=== PATIENT | male | born 1985 | race American Indian/Alaskan Native ===

== ENCOUNTER 2019-01-02 10:26 | Emergency (ER) | payer SELFPAY ==
[2019-01-02 10:39] VITALS: BP 140/96
[2019-01-02 11:27] LABS: Basophils # (Auto) 0.1 K/mm3 (0.0-0.1); Basophils % (Auto) 1.2 % (0.0-1.8); Eosinophils # (Auto) 0.1 K/mm3 (0.0-0.4); Eosinophils % (Auto) 0.8 % (0.0-4.3); Lymphocytes # (Auto) 1.5 K/mm3 (1.2-5.4); Lymphocytes % (Auto) 14.4 % (13.4-35.0); Mean Corpuscular HGB Conc 35 % (32-34); Mean Corpuscular Volume 93 fl (84-94); Monocytes # (Auto) 0.8 K/mm3 (0.0-0.8); Monocytes % (Auto) 8.4 % (0.0-7.3); Platelet Count 224 K/mm3 (140-440); Red Blood Count 4.96 M/mm3 (3.65-5.03); Red Cell Distribution Width 13.7 % (13.2-15.2)
[2019-01-02 11:37] LABS: INR 1.05 (0.87-1.13); Partial Thromboplastin Time 26.5 Sec. (24.2-36.6)
[2019-01-02 11:52] LABS: BUN/Creatinine Ratio 11; Blood Urea Nitrogen 10 mg/dL (9-20); Calcium 9.6 mg/dL (8.4-10.2); Hemolysis Index 3
--- NOTE | 2019-01-02 11:54 | Emergency Department Report ---
ED General Adult HPI - General Chief complaint: Chest Pain Stated complaint: CHEST DISCOMFORT Time Seen by Provider: 01/02/19 10:43 Source: patient Mode of arrival: Ambulatory Limitations: No Limitations - History of Present Illness Initial comments: This is a 33-year-old male nontoxic, well nourished in appearance, no acute signs of distress presents to the ED with c/o of body aches, nausea, and chest tightness. Patient currently stated that chest tightness has resolved. Patient stated that he went out last night around 11 PM and had a drink and believed a history of a spike. Patient stated this and then has having the symptoms as well as some drowsiness. Patient denies any chest pain. Patient denies any upper respiratory symptoms. Patient denies any shortness of breath, hemoptysis, fever, chills, nausea, vomiting, headache, stiff neck, numbness, tingling, abdominal pain. Patient denies pleuritic chest pain. Patient denies any recent travels or long car rides. Patient denies any recent surgeries or any sick contacts. Patient denies any drug allergies. Patient denies significant past medical history. -: Last night Radiation: non-radiation Severity scale (0 -10): 0 Consistency: now resolved Improves with: none Worsens with: none Associated Symptoms: nausea/vomiting, weakness. denies: confusion, chest pain, cough, diaphoresis, fever/chills, headaches, loss of appetite, malaise, rash, seizure, shortness of breath, syncope - Related Data Previous Rx's Medication Instructions Recorded Last Taken Type Ondansetron [Zofran Odt] 4 mg PO Q8HR PRN #20 tab.rapdis 01/02/19 Unknown Rx Allergies Allergy/AdvReac Type Severity Reaction Status Date / Time No Known Allergies Allergy Verified 01/02/19 10:27 ED Review of Systems ROS: Stated complaint: CHEST DISCOMFORT Other details as noted in HPI Constitutional: denies: chills, fever Eyes: denies: eye pain, eye discharge, vision change ENT: denies: ear pain, throat pain Respiratory: denies: cough, shortness of breath, wheezing Cardiovascular: denies: chest pain, palpitations Endocrine: no symptoms reported Gastrointestinal: denies: abdominal pain, nausea, diarrhea Genitourinary: denies: urgency, dysuria Musculoskeletal: denies: back pain, joint swelling, arthralgia Skin: denies: rash, lesions Neurological: weakness. denies: headache, paresthesias Psychiatric: denies: anxiety, depression Hematological/Lymphatic: denies: easy bleeding, easy bruising ED Past Medical Hx - Past Medical History Previous Medical History?: No - Surgical History Hx Appendectomy: Yes Additional Surgical History: Plate to right ankle - Social History Smoking Status: Current Every Day Smoker Substance Use Type: Alcohol, Marijuana - Medications Home Medications: Home Medications Medication Instructions Recorded Confirmed Last Taken Type Ondansetron [Zofran Odt] 4 mg PO Q8HR PRN #20 tab.rapdis 01/02/19 Unknown Rx ED Physical Exam - General Limitations: No Limitations General appearance: alert, in no apparent distress - Head Head exam: Present: atraumatic, normocephalic - Eye Eye exam: Present: normal appearance - Neck Neck exam: Present: normal inspection, full ROM. Absent: tenderness, meningismus, lymphadenopathy - Respiratory Respiratory exam: Present: normal lung sounds bilaterally. Absent: respiratory distress, wheezes, rales, rhonchi, stridor, chest wall tenderness, accessory muscle use, decreased breath sounds, prolonged expiratory - Cardiovascular Cardiovascular Exam: Present: regular rate, normal rhythm, normal heart sounds. Absent: irregular rhythm, systolic murmur, diastolic murmur, rubs, gallop - GI/Abdominal GI/Abdominal exam: Present: soft, normal bowel sounds. Absent: distended, tenderness, guarding, rebound, rigid, diminished bowel sounds - Rectal Rectal exam: Present: deferred - Extremities Exam Extremities exam: Present: normal inspection, full ROM, normal capillary refill. Absent: tenderness - Back Exam Back exam: Present: normal inspection, full ROM. Absent: tenderness, CVA tenderness (R), CVA tenderness (L), muscle spasm, paraspinal tenderness, vertebral tenderness, rash noted - Neurological Exam Neurological exam: Present: alert, oriented X3, normal gait - Psychiatric Psychiatric exam: Present: normal affect, normal mood - Skin Skin exam: Present: warm, dry, intact, normal color. Absent: rash ED Course Vital Signs 01/02/19 10:32 Temperature 98.2 F Pulse Rate 100 H Respiratory 18 Rate Blood Pressure 140/96 O2 Sat by Pulse 100 Oximetry - Reevaluation(s) Reevaluation #1: 01/02/19 11:53 Patient is speaking in full sentences with no signs of distress noted. ED Medical Decision Making - Lab Data Result diagrams: 01/02/19 11:04 01/02/19 11:04 - Medical Decision Making This is a 33-year-old male that presents with generalized weakness. Patient is stable and was examined by me. MELISSA and HEART score 0 pints. Wells criteria for DVT/SVT/PE 0 points. EKG normal sinus rhythm with no significant changes in ST. Chest xray dictated by the radiologist. PAtient is notified of the Xray report with no questions noted. Labs within normal limits. Negative troponin. UA and drug panel obtained. 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 At time of discharge, the patient does not seem toxic or ill in appearance. No acute signs of distress noted. Patient agrees to discharge treatment plan of care. No further questions noted by the patient. Critical care attestation.: If time is entered above; I have spent that time in minutes in the direct care of this critically ill patient, excluding procedure time. ED Disposition Clinical Impression: Generalized weakness Disposition: DC-01 TO HOME OR SELFCARE Is pt being admited?: No Does the pt Need Aspirin: No Condition: Stable Instructions: Weakness (ED) Additional Instructions: Follow-up with a primary care doctor in 3-5 days or if symptoms worsen and continue return to emergency room as soon as possible. Prescriptions: Ondansetron [Zofran Odt] 4 mg PO Q8HR PRN #20 tab.rapdis PRN Reason: nausea [facility] OLIV[facility] [Primary Care Provider[facility] - 3-5 Days PRIMARY MD SD [Referring] - 3-5 Days JANNET HYMAN MD [Staff Physician] - 3-5 Days [facility] [Outside] - 3-5 Days [facility] [Outside] - 3-5 Days Forms: Work/School Release Form(ED)
[2019-01-02 12:09] LABS: Bilirubin,Urine NEG (Negative); Blood,Urine NEG (Negative); Color,Urine Straw (Yellow); Protein,Urine <15 mg/dL mg/dL (Negative); Urobilinogen,Urine < 2.0 mg/dL (<2.0)
--- NOTE | 2019-01-02 12:15 | XRay Report ---
PROCEDURE: XR CHEST ROUTINE 2V TECHNIQUE: Chest, 2 views HISTORY: Chest Pain COMPARISON: None FINDINGS: The heart size is normal. There is no pulmonary vascular congestion seen. Mediastinal contours are normal. Lungs are clear. There is no pleural effusion seen. There is no pneumothorax seen. IMPRESSION: No acute abnormality identified. This document is electronically signed by Luh Almanza MD., January 02 2019 01:13:43 PM ET
[2019-01-02 12:19] LABS: Amphetamine Screen,Urine PRESUMPTIVE NEGATIVE; Benzodiazepines Screen,Urine PRESUMPTIVE NEGATIVE; Cocaine Screen,Urine PRESUMPTIVE NEGATIVE; Methadone Screen,Urine PRESUMPTIVE NEGATIVE; Opiate Screen,Urine PRESUMPTIVE NEGATIVE
[2019-01-02 12:33] LABS: Cannabinoid Screen,Urine PRESUMPTIVE POSITIVE
== END 2019-01-02 12:30 | disposition home or self-care (01) ==
LOC: ED 10:26
DX: R53.1 Weakness (principal); R07.89 Other chest pain; F17.200 Nicotine dependence, unspecified, uncomplicated; F12.10 Cannabis abuse, uncomplicated; Z90.49 Acquired absence of other specified parts of digestive tract
CPT/HCPCS: 36415; 71046; 80048; 80307; 81001; 84484; 85025; 85610; 85730; 93005; 93010

== ENCOUNTER 2019-08-06 05:12 | Emergency (ER) | payer SELFPAY ==
[2019-08-06] MEDS ORDERED: SODIUM CHLORIDE 0.9% 1000 ML 1,000 ML ONE (05:50)
[2019-08-06] MEDS ORDERED: ADENOSINE 6 MG/2 ML INJ ONE (05:54)
[2019-08-06] MEDS ORDERED: LORazepam 2 MG/ML VIAL ONE (06:06)
[2019-08-06] MEDS ORDERED: SODIUM CHLORIDE 0.9% 1000 ML 1,000 ML IV ONE (06:30)
[2019-08-06] MEDS ORDERED: LORazepam 2 MG/ML VIAL IV ONE (06:30)
--- NOTE | 2019-08-06 07:02 | XRay Report ---
CHEST 1 VIEW, 08/06/2019 6:39 AM CLINICAL INFORMATION/INDICATION: Chest pain COMPARISON: Chest radiograph, 01/02/2019 FINDINGS: SUPPORT DEVICES: None. HEART: The cardiac silhouette is normal in size. LUNGS/PLEURA: The lungs are well expanded and appear clear of focal airspace disease or significant p leural effusion. ADDITIONAL FINDINGS: No additional acute findings. IMPRESSION: 1. No evidence of acute cardiopulmonary process. Signer Name: Lynne Razo MD Signed: 08/06/2019 6:57 AM Workstation Name: [id number]
[2019-08-06 07:23] LABS: Basophils % (Auto) 0.4 % (0.0-1.8); Eosinophils % (Auto) 0.5 % (0.0-4.3); Hemoglobin 13.8 gm/dl (11.8-15.2); Lymphocytes # (Auto) 1.8 K/mm3 (1.2-5.4); Lymphocytes % (Auto) 21.4 % (13.4-35.0); Mean Corpuscular HGB Conc 33 % (32-34); Mean Corpuscular Volume 94 fl (84-94); Monocytes # (Auto) 0.6 K/mm3 (0.0-0.8); Monocytes % (Auto) 6.6 % (0.0-7.3); Platelet Count 180 K/mm3 (140-440); Red Blood Count 4.46 M/mm3 (3.65-5.03); Red Cell Distribution Width 13.7 % (13.2-15.2)
[2019-08-06 07:31] LABS: INR 1.02 (0.87-1.13)
[2019-08-06 07:32] LABS: Partial Thromboplastin Time 29.5 Sec. (24.2-36.6)
--- NOTE | 2019-08-06 07:32 | Emergency Department Report ---
ED General Adult HPI - General Chief complaint: Arrhythmia/Palpitations Stated complaint: HEART RATE, CHEST PAIN Time Seen by Provider: 08/06/19 06:30 Source: patient, family Mode of arrival: Ambulatory Limitations: No Limitations - History of Present Illness Initial comments: 34-year-old male who felt the onset of his heart beating rapidly at about 5 AM this morning. He had some vague dyspnea which was mild in intensity. He thought he might be experiencing a panic attack. He did not have cough. He denied chest pain pressure or tightness. Apparently he was given a Zofran by a mid-level provider earlier. He did not complain to me of nausea. Denied fever or chills. H and states he's had episodes like this before but not as persistent. He tells me he is on trazodone and Seroquel. 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 Other than that he denies any ongoing medical problems. He's had no appendectomy no recent surgery. Patient denies previous history of serious infection or venous thromboembolism. He's had no recent travel. He denies any ongoing substance abuse. -: Gradual Associated Symptoms: denies other symptoms - Related Data Previous Rx's Medication Instructions Recorded Last Taken Type Ondansetron [Zofran Odt] 4 mg PO Q8HR PRN #20 tab.rapdis 01/02/19 Unknown Rx Allergies Allergy/AdvReac Type Severity Reaction Status Date / Time No Known Allergies Allergy Verified 01/02/19 10:27 ED Review of Systems ROS: Stated complaint: HEART RATE, CHEST PAIN Other details as noted in HPI Constitutional: denies: chills, fever Eyes: denies: eye pain, eye discharge, vision change ENT: denies: ear pain, throat pain Respiratory: shortness of breath. denies: cough, wheezing Cardiovascular: other. denies: chest pain, palpitations Endocrine: no symptoms reported Gastrointestinal: denies: abdominal pain, nausea, diarrhea Genitourinary: denies: urgency, dysuria Musculoskeletal: denies: back pain, joint swelling, arthralgia Skin: denies: rash, lesions Neurological: denies: headache, weakness, paresthesias Psychiatric: anxiety. denies: depression Hematological/Lymphatic: denies: easy bleeding, easy bruising ED Past Medical Hx - Past Medical History Previous Medical History?: No Hx Psychiatric Treatment: Yes Additional medical history: "Drug induced schizophrenia" - Surgical History Past Surgical History?: Yes Hx Appendectomy: Yes Additional Surgical History: Plate to right ankle - Social History Smoking Status: Current Every Day Smoker Substance Use Type: Alcohol, Marijuana - Medications Home Medications: Home Medications Medication Instructions Recorded Confirmed Last Taken Type Ondansetron [Zofran Odt] 4 mg PO Q8HR PRN #20 tab.rapdis 01/02/19 Unknown Rx ED Physical Exam - General Limitations: No Limitations General appearance: alert, in no apparent distress - Head Head exam: Present: atraumatic, normocephalic - Eye Eye exam: Present: normal appearance, PERRL, EOMI. Absent: scleral icterus - ENT ENT exam: Present: mucous membranes moist - Neck Neck exam: Present: normal inspection. Absent: tenderness, meningismus - Respiratory Respiratory exam: Present: normal lung sounds bilaterally. Absent: respiratory distress - Cardiovascular Cardiovascular Exam: Present: normal rhythm, tachycardia. Absent: systolic murmur, diastolic murmur, rubs, gallop - GI/Abdominal GI/Abdominal exam: Present: soft, normal bowel sounds. Absent: distended, tenderness, guarding, rebound, rigid - Rectal Rectal exam: Present: deferred - Extremities Exam Extremities exam: Present: normal inspection, full ROM, normal capillary refill. Absent: tenderness, pedal edema, joint swelling, calf tenderness - Back Exam Back exam: Present: normal inspection - Neurological Exam Neurological exam: Present: alert, oriented X3, CN II-XII intact. Absent: motor sensory deficit - Psychiatric Psychiatric exam: Present: normal affect, normal mood - Skin Skin exam: Present: warm, dry, intact, normal color. Absent: rash ED Course Vital Signs 08/06/19 08/06/19 08/06/19 05:40 05:43 05:48 Temperature 98.4 F Pulse Rate 187 H 165 H Respiratory 18 18 14 Rate Blood Pressure 117/55 Blood Pressure [Left] O2 Sat by Pulse 97 97 Oximetry 08/06/19 08/06/19 08/06/19 06:00 06:15 07:54 Temperature Pulse Rate 145 H 120 H 105 H Respiratory 11 L 15 16 Rate Blood Pressure 140/76 120/67 Blood Pressure 122/82 [Left] O2 Sat by Pulse 95 96 96 Oximetry 08/06/19 09:58 Temperature Pulse Rate 87 Respiratory 16 Rate Blood Pressure Blood Pressure 96/61 [Left] O2 Sat by Pulse 97 Oximetry - Reevaluation(s) Reevaluation #1: Patient's heart rate was really quite variable upon my encounter. He ranged between 149 and 130; the rhythm is clearly sinus tachycardia. He was given a milligram of Ativan and fluids. Last recorded rate was 120. Labs are pending. 08/06/19 07:40 Reevaluation #2: After the Ativan the patient rested comfortably. He is given fluids. Eventually his heart rate returned to the normal range. I just repeated his blood pressure it was normal and his heart rate was in the 80s. He had no further complaint. He states that he does smoke marijuana but has not smoked any recently. He is appropriate for outpatient disposition. 08/06/19 10:09 ED Medical Decision Making - Lab Data Result diagrams: 08/06/19 06:55 08/06/19 06:55 Laboratory Results - last 24 hr 08/06/19 08/06/19 06:55 06:55 WBC 8.6 RBC 4.46 Hgb 13.8 Hct 42.0 MCV 94 MCH 31 MCHC 33 RDW 13.7 Plt Count 180 Lymph % (Auto) 21.4 [place] % (Auto) 6.6 Eos % (Auto) 0.5 Baso % (Auto) 0.4 Lymph # 1.8 [place] # 0.6 Eos # 0.0 Baso # 0.0 Seg Neutrophils % 71.1 H Seg Neutrophils # 6.1 PT 13.5 INR 1.02 APTT 29.5 D-Dimer 139.46 Laboratory Results - last 24 hr 08/06/19 08/06/19 08/06/19 06:55 06:55 06:55 WBC 8.6 RBC 4.46 Hgb 13.8 Hct 42.0 MCV 94 MCH 31 MCHC 33 RDW 13.7 Plt Count 180 Lymph % (Auto) 21.4 [place] % (Auto) 6.6 Eos % (Auto) 0.5 Baso % (Auto) 0.4 Lymph # 1.8 [place] # 0.6 Eos # 0.0 Baso # 0.0 Seg Neutrophils % 71.1 H Seg Neutrophils # 6.1 PT 13.5 INR 1.02 APTT 29.5 D-Dimer 139.46 Sodium 143 Potassium 3.6 Chloride 109.0 H Carbon Dioxide 21 L Anion Gap 17 BUN 12 Creatinine 0.8 Estimated GFR > 60 BUN/Creatinine Ratio 15 Glucose 96 Lactic Acid Calcium 8.8 Magnesium 2.20 Total Bilirubin Direct Bilirubin Indirect Bilirubin AST ALT Alkaline Phosphatase Total Creatine Kinase 129 CK-MB (CK-2) 1.1 CK-MB (CK-2) Rel Index 0.8 Troponin T < 0.010 Total Protein Albumin Albumin/Globulin Ratio TSH Free T4 Urine Color Urine Turbidity Urine pH Ur Specific [place] Urine Protein Urine Glucose (UA) Urine Ketones Urine Blood Urine Nitrite Urine Bilirubin Urine Urobilinogen Ur Leukocyte Esterase Urine WBC (Auto) Urine RBC (Auto) Urine Opiates Screen Urine Methadone Screen Ur Barbiturates Screen Ur Phencyclidine Scrn Ur Amphetamines Screen U Benzodiazepines Scrn Urine Cocaine Screen U Marijuana (THC) Screen Drugs of Abuse Note 08/06/19 08/06/19 08/06/19 06:55 06:55 07:01 WBC RBC Hgb Hct MCV MCH MCHC RDW Plt Count Lymph % (Auto) [place] % (Auto) Eos % (Auto) Baso % (Auto) Lymph # [place] # Eos # Baso # Seg Neutrophils % Seg Neutrophils # PT INR APTT D-Dimer Sodium Potassium Chloride Carbon Dioxide Anion Gap BUN Creatinine Estimated GFR BUN/Creatinine Ratio Glucose Lactic Acid 1.10 Calcium Magnesium Total Bilirubin 0.20 Direct Bilirubin < 0.2 Indirect Bilirubin 0.0 AST 14 ALT 7 Alkaline Phosphatase 35 Total Creatine Kinase CK-MB (CK-2) CK-MB (CK-2) Rel Index Troponin T Total Protein 6.1 L Albumin 4.0 Albumin/Globulin Ratio 1.9 TSH 2.870 Free T4 0.82 Urine Color Urine Turbidity Urine pH Ur Specific [place] Urine Protein Urine Glucose (UA) Urine Ketones Urine Blood Urine Nitrite Urine Bilirubin Urine Urobilinogen Ur Leukocyte Esterase Urine WBC (Auto) Urine RBC (Auto) Urine Opiates Screen Urine Methadone Screen Ur Barbiturates Screen Ur Phencyclidine Scrn Ur Amphetamines Screen U Benzodiazepines Scrn Urine Cocaine Screen U Marijuana (THC) Screen Drugs of Abuse Note 08/06/19 08/06/19 07:53 07:53 WBC RBC Hgb Hct MCV MCH MCHC RDW Plt Count Lymph % (Auto) [place] % (Auto) Eos % (Auto) Baso % (Auto) Lymph # [place] # Eos # Baso # Seg Neutrophils % Seg Neutrophils # PT INR APTT D-Dimer Sodium Potassium Chloride Carbon Dioxide Anion Gap BUN Creatinine Estimated GFR BUN/Creatinine Ratio Glucose Lactic Acid Calcium Magnesium Total Bilirubin Direct Bilirubin Indirect Bilirubin AST ALT Alkaline Phosphatase Total Creatine Kinase CK-MB (CK-2) CK-MB (CK-2) Rel Index Troponin T Total Protein Albumin Albumin/Globulin Ratio TSH Free T4 Urine Color Straw Urine Turbidity Clear Urine pH 6.0 Ur Specific [place] 1.005 Urine Protein <15 mg/dl Urine Glucose (UA) Neg Urine Ketones Neg Urine Blood Neg Urine Nitrite Neg Urine Bilirubin Neg Urine Urobilinogen < 2.0 Ur Leukocyte Esterase Neg Urine WBC (Auto) < 1.0 Urine RBC (Auto) 1.0 Urine Opiates Screen Presumptive negative Urine Methadone Screen Presumptive negative Ur Barbiturates Screen Presumptive negative Ur Phencyclidine Scrn Presumptive negative Ur Amphetamines Screen Presumptive negative U Benzodiazepines Scrn Presumptive negative Urine Cocaine Screen Presumptive negative U Marijuana (THC) Screen Presumptive positive Drugs of Abuse Note Disclamer - EKG Data -: EKG Interpreted by Tn EKG shows normal: sinus rhythm Rate: tachycardia (160) - EKG Data Interpretation: nonspecific ST-T wave ren (slight ST depression and prominent T waves), other (RSR in V2) Critical care attestation.: If time is entered above; I have spent that time in minutes in the direct care of this critically ill patient, excluding procedure time. ED Disposition Clinical Impression: Tachycardia, Acute anxiety Disposition: DC-01 TO HOME OR SELFCARE Is pt being admited?: No Does the pt Need Aspirin: No Condition: Stable Instructions: Anxiety (ED), Atrial Tachycardia (ED) Additional Instructions: Return as needed any further symptoms. Rest, drink plenty of fluids. Follow-up with her usual care providers or [facility] as needed. Referrals: [facility] [Provider Group] - 3-5 Days Time of Disposition: 10:11
[2019-08-06 07:46] LABS: Creatine Kinase MB 1.1 ng/mL (0.0-4.0)
[2019-08-06 07:49] LABS: BUN/Creatinine Ratio 15; Blood Urea Nitrogen 12 mg/dL (9-20); Calcium 8.8 mg/dL (8.4-10.2); Hemolysis Index 7
[2019-08-06 07:50] LABS: Alanine Aminotransferase 7 units/L (7-56)
[2019-08-06 07:56] LABS: Free T4 (Free Thyroxine) 0.82 ng/dL (0.76-1.46)
[2019-08-06 08:02] LABS: Bilirubin,Direct < 0.2 mg/dL (0-0.2)
[2019-08-06 08:15] LABS: Bilirubin,Urine NEG (Negative); Blood,Urine NEG (Negative); Color,Urine Straw (Yellow); Protein,Urine <15 mg/dL mg/dL (Negative); Urobilinogen,Urine < 2.0 mg/dL (<2.0); WBC,Urine < 1.0 /HPF (0.0-6.0)
[2019-08-06 08:27] LABS: Amphetamine Screen,Urine PRESUMPTIVE NEGATIVE; Benzodiazepines Screen,Urine PRESUMPTIVE NEGATIVE; Cocaine Screen,Urine PRESUMPTIVE NEGATIVE; Methadone Screen,Urine PRESUMPTIVE NEGATIVE; Opiate Screen,Urine PRESUMPTIVE NEGATIVE
[2019-08-06 08:39] LABS: Cannabinoid Screen,Urine PRESUMPTIVE POSITIVE
[2019-08-06 09:59] VITALS: BP 96/61
== END 2019-08-06 10:37 | disposition home or self-care (01) ==
LOC: ED 05:12
DX: R00.0 Tachycardia, unspecified (principal); F41.9 Anxiety disorder, unspecified; F20.9 Schizophrenia, unspecified; F17.200 Nicotine dependence, unspecified, uncomplicated; F10.10 Alcohol abuse, uncomplicated; F12.10 Cannabis abuse, uncomplicated; Z90.49 Acquired absence of other specified parts of digestive tract; Z79.899 Other long term (current) drug therapy
CPT/HCPCS: 36415; 71045; 80048; 80076; 80307; 81001; 82140; 82550; 82553; 83735; 84439; 84443; 84484; 85025; 85379; 85610; 85730; 93005; 93010; 96374; 99284; J0153; J2060; J7030

== ENCOUNTER 2019-09-20 04:10 | Emergency (ER) | payer SELFPAY ==
[2019-09-20] MEDS ORDERED: ASPIRIN 325 MG TAB PO ONE (04:17)
[2019-09-20] MEDS ORDERED: SODIUM CHLORIDE 0.9% 1000 ML 1,000 ML ONE ×2 (04:26→04:28)
[2019-09-20] MEDS ORDERED: LORazepam 2 MG/ML VIAL ONE (04:36)
--- NOTE | 2019-09-20 04:41 | Emergency Department Report ---
ED Palpitations HPI - General Chief Complaint: Chest Pain Stated Complaint: CHEST PAIN DRUG USE Time Seen by Provider: 09/20/19 04:39 Source: patient Mode of arrival: Ambulatory Limitations: No Limitations - History of Present Illness Initial Comments: 34-year-old male presents to ED with complaint of heart palpitations. Patient states he did some cocaine tonight and states his heart was racing faster than usual. Patient reports he has used cocaine previously. Triage note reports patient is having chest pain, however patient currently denies. MD Complaint: "heart racing" -: This morning Context: recent drug use Associated Symptoms: denies: chest pain, shortness of breath, nausea/vomiting - Related Data Previous Rx's Medication Instructions Recorded Last Taken Type Ondansetron [Zofran Odt] 4 mg PO Q8HR PRN #20 tab.rapdis 01/02/19 Unknown Rx Allergies Allergy/AdvReac Type Severity Reaction Status Date / Time No Known Allergies Allergy Verified 01/02/19 10:27 ED Review of Systems ROS: Stated complaint: CHEST PAIN DRUG USE Other details as noted in HPI Comment: All other systems reviewed and negative Constitutional: denies: chills, fever Respiratory: denies: shortness of breath Cardiovascular: palpitations. denies: chest pain ED Past Medical Hx - Past Medical History Previous Medical History?: No Hx Psychiatric Treatment: Yes Additional medical history: "Drug induced schizophrenia" - Surgical History Hx Appendectomy: Yes Additional Surgical History: Plate to right ankle - Social History Smoking Status: Never Smoker Substance Use Type: Cocaine - Medications Home Medications: Home Medications Medication Instructions Recorded Confirmed Last Taken Type Ondansetron [Zofran Odt] 4 mg PO Q8HR PRN #20 tab.rapdis 01/02/19 Unknown Rx ED Physical Exam - General Limitations: No Limitations General appearance: alert, in no apparent distress - Head Head exam: Present: atraumatic, normocephalic - Eye Eye exam: Present: normal appearance, EOMI - ENT ENT exam: Present: mucous membranes moist - Neck Neck exam: Present: normal inspection - Respiratory Respiratory exam: Present: normal lung sounds bilaterally. Absent: respiratory distress - Cardiovascular Cardiovascular Exam: Present: normal rhythm, tachycardia - GI/Abdominal GI/Abdominal exam: Present: soft. Absent: distended, tenderness - Extremities Exam Extremities exam: Present: normal inspection - Neurological Exam Neurological exam: Present: alert, oriented X3 - Psychiatric Psychiatric exam: Present: normal affect, normal mood - Skin Skin exam: Present: warm, dry, intact, normal color ED Course Vital Signs 09/20/19 09/20/19 09/20/19 04:14 04:30 04:46 Temperature 97.8 F Pulse Rate 167 H 131 H 103 H Respiratory 18 11 L 11 L Rate Blood Pressure 131/98 113/68 113/68 O2 Sat by Pulse 98 94 98 Oximetry 09/20/19 09/20/19 09/20/19 04:49 05:16 05:30 Temperature Pulse Rate 114 H 113 H Respiratory 13 13 12 Rate Blood Pressure 113/73 97/52 O2 Sat by Pulse 98 96 94 Oximetry ED Medical Decision Making - Lab Data Result diagrams: 09/20/19 04:22 09/20/19 04:22 - EKG Data -: EKG Interpreted by Ct EKG shows normal: sinus rhythm, axis, intervals, QRS complexes, ST-T waves Rate: tachycardia - EKG Data Interpretation: no acute changes - Radiology Data Radiology results: report reviewed, image reviewed - Medical Decision Making - palpitations after cocaine use - sinus tachycardia - HR initially in the 150s, currently in the 110s. - pt feeling much better - advised to avoid using cocaine - outpt f/u advised, return precautions given Critical care attestation.: If time is entered above; I have spent that time in minutes in the direct care of this critically ill patient, excluding procedure time. ED Disposition Clinical Impression: Palpitations, Cocaine abuse, Hypokalemia Disposition: - TO HOME OR SELFCARE Is pt being admited?: No Condition: Stable Instructions: Palpitations (ED), Cocaine Abuse (ED), Hypokalemia (ED) Referrals: [facility] [Provider Group] - 3-5 Days Time of Disposition: 05:47
[2019-09-20 04:43] LABS: Basophils # (Auto) 0.1 K/mm3 (0.0-0.1); Basophils % (Auto) 0.7 % (0.0-1.8); Eosinophils # (Auto) 0.1 K/mm3 (0.0-0.4); Eosinophils % (Auto) 1.3 % (0.0-4.3); Hematocrit 46.1 % (35.5-45.6); Lymphocytes # (Auto) 2.9 K/mm3 (1.2-5.4); Lymphocytes % (Auto) 26.3 % (13.4-35.0); Mean Corpuscular HGB Conc 35 % (32-34); Mean Corpuscular Volume 92 fl (84-94); Monocytes # (Auto) 0.8 K/mm3 (0.0-0.8); Monocytes % (Auto) 7.4 % (0.0-7.3); Platelet Count 198 K/mm3 (140-440); Red Blood Count 5.04 M/mm3 (3.65-5.03); Red Cell Distribution Width 13.5 % (13.2-15.2)
--- NOTE | 2019-09-20 04:46 | XRay Report ---
CHEST 1 VIEW INDICATION / CLINICAL INFORMATION: Chest Pain. COMPARISON: 08/06/2019 FINDINGS: SUPPORT DEVICES: None. HEART / MEDIASTINUM: No significant abnormality. LUNGS / PLEURA: No significant pulmonary or pleural abnormality.. No pneumothorax. ADDITIONAL FINDINGS: No significant additional findings. IMPRESSION: 1. No acute findings. Signer Name: Amrik Real MD Signed: 09/20/2019 4:41 AM Workstation Name: [id number]
[2019-09-20] MEDS ORDERED: LORazepam 2 MG/ML VIAL IV ONE (04:51)
[2019-09-20 05:07] LABS: BUN/Creatinine Ratio 8; Blood Urea Nitrogen 7 mg/dL (9-20); Calcium 9.7 mg/dL (8.4-10.2); Hemolysis Index 10
[2019-09-20] MEDS ORDERED: POTASSIUM CHLORIDE ER 20 MEQ TAB PO ONE (05:34)
[2019-09-20 06:09] VITALS: BP 102/60
== END 2019-09-20 06:10 | disposition home or self-care (01) ==
LOC: ED 04:10
DX: R00.2 Palpitations (principal); E87.6 Hypokalemia; F14.10 Cocaine abuse, uncomplicated; F20.89 Other schizophrenia; Z98.890 Other specified postprocedural states; Z90.49 Acquired absence of other specified parts of digestive tract; Z79.899 Other long term (current) drug therapy
CPT/HCPCS: 36415; 71045; 80048; 84484; 85025; 93005; 93010; 99284; J2060; J7030

== ENCOUNTER 2019-09-25 06:01 | Emergency (ER) | payer SELFPAY ==
[2019-09-25] MEDS ORDERED: SODIUM CHLORIDE 0.9% 1000 ML 1,000 ML IV ONE (06:12)
[2019-09-25] MEDS ORDERED: LORazepam 2 MG/ML VIAL IV ONE (06:12)
[2019-09-25 06:45] LABS: Basophils # (Auto) 0.1 K/mm3 (0.0-0.1); Basophils % (Auto) 0.5 % (0.0-1.8); Eosinophils # (Auto) 0.2 K/mm3 (0.0-0.4); Eosinophils % (Auto) 1.5 % (0.0-4.3); Hemoglobin 15.4 gm/dl (11.8-15.2); Lymphocytes # (Auto) 2.6 K/mm3 (1.2-5.4); Lymphocytes % (Auto) 24.5 % (13.4-35.0); Mean Corpuscular HGB Conc 35 % (32-34); Mean Corpuscular Volume 92 fl (84-94); Monocytes # (Auto) 0.9 K/mm3 (0.0-0.8); Monocytes % (Auto) 8.6 % (0.0-7.3); Platelet Count 186 K/mm3 (140-440); Red Blood Count 4.81 M/mm3 (3.65-5.03); Red Cell Distribution Width 13.1 % (13.2-15.2)
[2019-09-25 06:55] LABS: INR 0.96 (0.87-1.13)
--- NOTE | 2019-09-25 06:55 | XRay Report ---
CHEST 1 VIEW INDICATION: hypertension. COMPARISON: 09/20/2019 FINDINGS: Support devices: None. Heart: Normal. Lungs/Pleura: No acute pulmonary or pleural findings. IMPRESSION: 1. No acute findings. Signer Name: Jesus Alberto Pineda MD Signed: 09/25/2019 6:50 AM Workstation Name: [id number]
[2019-09-25 06:56] LABS: Partial Thromboplastin Time 28.1 Sec. (24.2-36.6)
[2019-09-25 07:02] LABS: Bilirubin,Urine NEG (Negative); Blood,Urine NEG (Negative); Color,Urine Straw (Yellow); Protein,Urine <15 mg/dL mg/dL (Negative); Urobilinogen,Urine < 2.0 mg/dL (<2.0)
[2019-09-25 07:02] LABS: BUN/Creatinine Ratio 11; Blood Urea Nitrogen 11 mg/dL (9-20); Calcium 9.7 mg/dL (8.4-10.2); Hemolysis Index 9
[2019-09-25 07:03] LABS: Creatine Kinase MB < 1.0 ng/mL (0.0-4.0)
[2019-09-25 07:04] LABS: Alanine Aminotransferase 8 units/L (7-56); Albumin 4.9 g/dL (3.9-5)
[2019-09-25 07:07] LABS: Amphetamine Screen,Urine PRESUMPTIVE NEGATIVE; Benzodiazepines Screen,Urine PRESUMPTIVE NEGATIVE; Cocaine Screen,Urine PRESUMPTIVE NEGATIVE; Methadone Screen,Urine PRESUMPTIVE NEGATIVE; Opiate Screen,Urine PRESUMPTIVE NEGATIVE
[2019-09-25 07:10] LABS: Bilirubin,Direct < 0.2 mg/dL (0-0.2)
[2019-09-25 07:20] LABS: Cannabinoid Screen,Urine PRESUMPTIVE POSITIVE
[2019-09-25] MEDS ORDERED: POTASSIUM CHLORIDE ER 20 MEQ TAB PO ONE (10:35)
--- NOTE | 2019-09-25 10:40 | Emergency Department Report ---
ED General Adult HPI - General Chief complaint: Arrhythmia/Palpitations Stated complaint: CHECK HEART RATE Time Seen by Provider: 09/25/19 06:10 Source: patient Mode of arrival: Ambulatory Limitations: No Limitations - History of Present Illness Initial comments: This is a 34-year-old man that gives a history of cocaine abuse. He has been here under similar circumstances a number of times. I have reviewed his prior urine drug screen and found it to be negative for cocaine. He states that he is recently used cocaine and that his heart is racing. He has presented quite similarly in the past as above indicated. He denies chest pain. He states he was not intending to hurt himself. He arrives with a sinus tachycardia. -: hour(s) Associated Symptoms: denies other symptoms - Related Data Previous Rx's Medication Instructions Recorded Last Taken Type Ondansetron [Zofran Odt] 4 mg PO Q8HR PRN #20 tab.rapdis 01/02/19 Unknown Rx Allergies Allergy/AdvReac Type Severity Reaction Status Date / Time No Known Allergies Allergy Verified 01/02/19 10:27 ED Review of Systems ROS: Stated complaint: CHECK HEART RATE Other details as noted in HPI Constitutional: denies: chills, fever Eyes: denies: eye pain, eye discharge, vision change ENT: denies: ear pain, throat pain Respiratory: denies: cough, shortness of breath, wheezing Cardiovascular: other (Tachycardia). denies: chest pain, palpitations Endocrine: no symptoms reported Gastrointestinal: denies: abdominal pain, nausea, diarrhea Genitourinary: denies: urgency, dysuria Musculoskeletal: denies: back pain, joint swelling, arthralgia Skin: denies: rash, lesions Neurological: denies: headache, weakness, paresthesias Psychiatric: denies: anxiety, depression Hematological/Lymphatic: denies: easy bleeding, easy bruising ED Past Medical Hx - Past Medical History Hx Psychiatric Treatment: Yes Additional medical history: "Drug induced schizophrenia" - Surgical History Hx Appendectomy: Yes Additional Surgical History: Plate to right ankle - Social History Smoking Status: Current Every Day Smoker Substance Use Type: Cocaine - Medications Home Medications: Home Medications Medication Instructions Recorded Confirmed Last Taken Type Ondansetron [Zofran Odt] 4 mg PO Q8HR PRN #20 tab.rapdis 01/02/19 Unknown Rx ED Physical Exam - General Limitations: No Limitations General appearance: alert, in no apparent distress - Head Head exam: Present: atraumatic, normocephalic - Eye Eye exam: Present: normal appearance. Absent: scleral icterus - ENT ENT exam: Present: mucous membranes moist - Neck Neck exam: Present: normal inspection - Respiratory Respiratory exam: Present: normal lung sounds bilaterally. Absent: respiratory distress - Cardiovascular Cardiovascular Exam: Present: normal rhythm, tachycardia. Absent: systolic murmur, diastolic murmur, rubs, gallop - GI/Abdominal GI/Abdominal exam: Present: soft, normal bowel sounds. Absent: distended, tenderness, guarding, rebound - Rectal Rectal exam: Present: deferred - Extremities Exam Extremities exam: Present: normal inspection - Back Exam Back exam: Present: normal inspection - Neurological Exam Neurological exam: Present: alert, oriented X3 - Psychiatric Psychiatric exam: Present: normal affect, normal mood - Skin Skin exam: Present: warm, dry, intact, normal color. Absent: rash ED Course Vital Signs 09/25/19 09/25/19 09/25/19 06:05 06:10 06:15 Temperature 98.0 F 98.6 F Pulse Rate 137 H 173 H 155 H Respiratory 18 18 15 Rate Blood Pressure 156/92 156/92 Blood Pressure 169/103 [Right] O2 Sat by Pulse 97 100 Oximetry 09/25/19 09/25/19 09/25/19 06:30 06:45 07:00 Temperature Pulse Rate 119 H 103 H 105 H Respiratory 17 15 14 Rate Blood Pressure 146/68 138/88 135/79 Blood Pressure [Right] O2 Sat by Pulse 99 97 Oximetry 09/25/19 09/25/19 09/25/19 07:15 07:30 08:00 Temperature Pulse Rate 103 H 108 H 102 H Respiratory 13 13 12 Rate Blood Pressure 135/76 125/72 Blood Pressure 125/72 [Right] O2 Sat by Pulse 95 96 95 Oximetry 09/25/19 09:00 Temperature Pulse Rate 91 H Respiratory 13 Rate Blood Pressure Blood Pressure 100/51 [Right] O2 Sat by Pulse 97 Oximetry - Reevaluation(s) Reevaluation #1: Patient was given 1 mg of Ativan IV. This did resolve his tachycardia. He was given fluids. On reexamination I did ask him regarding any possible indication of an intent for self-harm. He denied that. Oddly again, his urine tox screen is negative for cocaine. He has a history of "drug induced psychosis" per previous records. He is not on any psychiatric medication. He is now stable for discharge. He does not have any violent or suicidal ideation. He is not hallucinating. He is appropriate for outpatient referral. It would appear that he has repeated presentations for factitious illness. I am not certain he did not take something else which could have produced a tachycardia. However I could not eliminate a psychogenic cause for his presentation. In any case he will be referred to [facility]. 09/25/19 10:38 ED Medical Decision Making - Lab Data Result diagrams: 09/25/19 06:15 09/25/19 06:15 Laboratory Results - last 24 hr 09/25/19 09/25/19 09/25/19 06:15 06:15 06:15 WBC RBC Hgb Hct MCV MCH MCHC RDW Plt Count Lymph % (Auto) [place] % (Auto) Eos % (Auto) Baso % (Auto) Lymph # [place] # Eos # Baso # Seg Neutrophils % Seg Neutrophils # PT INR APTT Sodium 139 Potassium 3.3 L Chloride 97.7 L Carbon Dioxide 24 Anion Gap 21 BUN 11 Creatinine 1.0 Estimated GFR > 60 BUN/Creatinine Ratio 11 Glucose 146 H Calcium 9.7 Magnesium Total Bilirubin Direct Bilirubin Indirect Bilirubin AST ALT Alkaline Phosphatase Total Creatine Kinase 138 CK-MB (CK-2) < 1.0 CK-MB (CK-2) Rel Index 0.7 Troponin T NT-Pro-B Natriuret Pep Total Protein Albumin Albumin/Globulin Ratio Urine Color Urine Turbidity Urine pH Ur Specific [place] Urine Protein Urine Glucose (UA) Urine Ketones Urine Blood Urine Nitrite Ur Reducing Substances Urine Bilirubin Urine Ictotest Urine Urobilinogen Ur Leukocyte Esterase Urine WBC (Auto) Urine RBC (Auto) U Epithel Cells (Auto) Salicylates < 0.3 L Urine Opiates Screen Urine Methadone Screen Acetaminophen < 5.0 L Ur Barbiturates Screen Ur Phencyclidine Scrn Ur Amphetamines Screen U Benzodiazepines Scrn Urine Cocaine Screen U Marijuana (THC) Screen Drugs of Abuse Note Plasma/Serum Alcohol 09/25/19 09/25/19 09/25/19 06:15 06:15 06:15 WBC 10.7 RBC 4.81 Hgb 15.4 H Hct 44.0 MCV 92 MCH 32 MCHC 35 H RDW 13.1 L Plt Count 186 Lymph % (Auto) 24.5 [place] % (Auto) 8.6 H Eos % (Auto) 1.5 Baso % (Auto) 0.5 Lymph # 2.6 [place] # 0.9 H Eos # 0.2 Baso # 0.1 Seg Neutrophils % 64.9 Seg Neutrophils # 6.9 PT 12.9 INR 0.96 APTT 28.1 Sodium Potassium Chloride Carbon Dioxide Anion Gap BUN Creatinine Estimated GFR BUN/Creatinine Ratio Glucose Calcium Magnesium Total Bilirubin Direct Bilirubin Indirect Bilirubin AST ALT Alkaline Phosphatase Total Creatine Kinase CK-MB (CK-2) CK-MB (CK-2) Rel Index Troponin T NT-Pro-B Natriuret Pep Total Protein Albumin Albumin/Globulin Ratio Urine Color Urine Turbidity Urine pH Ur Specific [place] Urine Protein Urine Glucose (UA) Urine Ketones Urine Blood Urine Nitrite Ur Reducing Substances Urine Bilirubin Urine Ictotest Urine Urobilinogen Ur Leukocyte Esterase Urine WBC (Auto) Urine RBC (Auto) U Epithel Cells (Auto) Salicylates Urine Opiates Screen Urine Methadone Screen Acetaminophen Ur Barbiturates Screen Ur Phencyclidine Scrn Ur Amphetamines Screen U Benzodiazepines Scrn Urine Cocaine Screen U Marijuana (THC) Screen Drugs of Abuse Note Plasma/Serum Alcohol < 0.01 09/25/19 09/25/19 09/25/19 06:15 06:49 06:49 WBC RBC Hgb Hct MCV MCH MCHC RDW Plt Count Lymph % (Auto) [place] % (Auto) Eos % (Auto) Baso % (Auto) Lymph # [place] # Eos # Baso # Seg Neutrophils % Seg Neutrophils # PT INR APTT Sodium Potassium Chloride Carbon Dioxide Anion Gap BUN Creatinine Estimated GFR BUN/Creatinine Ratio Glucose Calcium Magnesium 2.20 Total Bilirubin 0.30 Direct Bilirubin < 0.2 Indirect Bilirubin 0.1 AST 15 ALT 8 Alkaline Phosphatase 53 Total Creatine Kinase CK-MB (CK-2) CK-MB (CK-2) Rel Index Troponin T < 0.010 NT-Pro-B Natriuret Pep 7.91 Total Protein 7.1 Albumin 4.9 Albumin/Globulin Ratio 2.2 Urine Color Straw Urine Turbidity Clear Urine pH 6.0 Ur Specific [place] 1.005 Urine Protein <15 mg/dl Urine Glucose (UA) Neg Urine Ketones Neg Urine Blood Neg Urine Nitrite Neg Ur Reducing Substances Not Reportable Urine Bilirubin Neg Urine Ictotest Not Reportable Urine Urobilinogen < 2.0 Ur Leukocyte Esterase Neg Urine WBC (Auto) 1.0 Urine RBC (Auto) 2.0 U Epithel Cells (Auto) < 1.0 Salicylates Urine Opiates Screen Presumptive negative Urine Methadone Screen Presumptive negative Acetaminophen Ur Barbiturates Screen Presumptive negative Ur Phencyclidine Scrn Presumptive negative Ur Amphetamines Screen Presumptive negative U Benzodiazepines Scrn Presumptive negative Urine Cocaine Screen Presumptive negative U Marijuana (THC) Screen Presumptive positive Drugs of Abuse Note Disclamer Plasma/Serum Alcohol - EKG Data -: EKG Interpreted by Me EKG shows normal: sinus rhythm Rate: tachycardia - EKG Data Interpretation: nonspecific ST-T wave ren, other (Left atrial enlargement) - Radiology Data Radiology results: report reviewed, image reviewed (Chest x-ray no acute process) Critical care attestation.: If time is entered above; I have spent that time in minutes in the direct care of this critically ill patient, excluding procedure time. ED Disposition Clinical Impression: Tachycardia, Psychiatric disorder, Hypokalemia Disposition: DC-01 TO HOME OR SELFCARE Is pt being admited?: No Does the pt Need Aspirin: No Condition: Stable Instructions: Polysubstance Abuse (ED), Hypokalemia (ED) Additional Instructions: I would recommend that you seek mental health evaluation. Do not abuse substances. Return any acute change as needed. Referrals: VINCENZO SOUSA MD [Primary Care Provider] - 3-5 Days Time of Disposition: 10:43
[2019-09-25 11:13] VITALS: BP 99/51
== END 2019-09-25 11:11 | disposition home or self-care (01) ==
LOC: ED 06:01
DX: E87.6 Hypokalemia (principal); R00.2 Palpitations; F12.10 Cannabis abuse, uncomplicated; F14.10 Cocaine abuse, uncomplicated; F17.200 Nicotine dependence, unspecified, uncomplicated; Z79.899 Other long term (current) drug therapy
CPT/HCPCS: 36415; 71045; 80048; 80076; 80307; 81001; 82550; 82553; 83735; 83880; 84484; 85025; 85610; 85730; 93005; 93010; 96374; 99284; J2060; J7030; 80320; G0480

== ENCOUNTER 2019-09-29 05:11 | Emergency (ER) | payer SELFPAY ==
[2019-09-29] MEDS ORDERED: ADENOSINE 6 MG/2 ML INJ IV ONE ×2 (05:23)
[2019-09-29] MEDS ORDERED: SODIUM CHLORIDE 0.9% 1000 ML 1,000 ML IV ONE ×2 (05:27→06:18)
--- NOTE | 2019-09-29 05:27 | Event Note ---
ED Screening Note Date of service: 09/29/19 ED Screening Note: This initial assessment/diagnostic orders/clinical plan/treatment(s) is/are subject to change based on patients health status, clinical progression and re- assessment by fellow clinical providers in the ED. Further treatment and workup at subsequent clinical providers discretion. Patient/guardian urged not to elope from the ED as their condition may be serious if not clinically assessed and managed. Initial orders include: Patient initially evaluated by myself and the thought with elevated HR about 150 is that the patient had a supraventricular tachycardia present. On EKG and upon reevaluation patient's heart rate had down trended to 130. Patient states that usually when he has an elevated heart rate it is because he did cocaine. Patient states he did not do cocaine today. With this history as well as the patient's presentation cardiac lab work as well as chest x-ray will be ordered.
[2019-09-29] MEDS ORDERED: SODIUM CHLORIDE 0.9% 1000 ML 1,000 ML ONE ×2 (05:29)
[2019-09-29 05:53] LABS: Hematocrit 42.1 % (35.5-45.6); Hemoglobin 14.6 gm/dl (11.8-15.2); Mean Corpuscular HGB Conc 35 % (32-34); Mean Corpuscular Volume 91 fl (84-94); Platelet Count 202 K/mm3 (140-440); Red Blood Count 4.63 M/mm3 (3.65-5.03)
--- NOTE | 2019-09-29 05:59 | XRay Report ---
CHEST 1 VIEW INDICATION: chest pain. COMPARISON: 09/25/2019 FINDINGS: Support devices: None. Heart: Normal. Lungs/Pleura: No acute pulmonary or pleural findings. IMPRESSION: 1. No acute findings. Signer Name: Jesus Alberto Pineda MD Signed: 09/29/2019 5:55 AM Workstation Name: [id number]
[2019-09-29 06:11] LABS: Alanine Aminotransferase 12 units/L (7-56); Albumin 4.6 g/dL (3.9-5); BUN/Creatinine Ratio 9; Blood Urea Nitrogen 9 mg/dL (9-20); Calcium 9.3 mg/dL (8.4-10.2); Hemolysis Index 14
[2019-09-29 06:18] LABS: Amphetamine Screen,Urine PRESUMPTIVE NEGATIVE; Benzodiazepines Screen,Urine PRESUMPTIVE NEGATIVE; Cocaine Screen,Urine PRESUMPTIVE NEGATIVE; Methadone Screen,Urine PRESUMPTIVE NEGATIVE; Opiate Screen,Urine PRESUMPTIVE NEGATIVE
--- NOTE | 2019-09-29 06:22 | Emergency Department Report ---
HPI - General Chief Complaint: Arrhythmia/Palpitations Time Seen by Provider: 09/29/19 06:11 - HPI HPI: Room 1 The patient is a 34-year-old male present with a chief complaint of "panic attack." Patient states he 7 again to feel dizzy and his heart started racing so he felt he was having a panic attack. Patient states the symptoms lasted 30 to 40 minutes. Patient states he feels all right currently. The patient states he has had episodes of the same in the past but has never sought medical attention. Patient admits to cocaine use but states he last used 3 to 4 days ago. Location: [See above] Duration: [See above] Quality: [See above] Severity: [See above] Timing: [See above] Context: [See above] Modifying factors: [See above] Associated signs and symptoms: [see above] Mode of Transportation: [the pt is not driving] ED Past Medical Hx - Past Medical History Previous Medical History?: Yes Hx Psychiatric Treatment: Yes (Bipolar disorder) Additional medical history: "Drug induced schizophrenia" - Surgical History Past Surgical History?: Yes Hx Appendectomy: Yes Additional Surgical History: Plate to right ankle, tonsillectomy - Family History Family history: no significant - Social History Smoking Status: Current Every Day Smoker (1/3 pack/day) Substance Use Type: Alcohol, Cocaine - Medications Home Medications: Home Medications Medication Instructions Recorded Confirmed Last Taken Type Ondansetron [Zofran Odt] 4 mg PO Q8HR PRN #20 tab.rapdis 01/02/19 Unknown Rx ED Review of Systems ROS: Stated complaint: PANIC ATTACK Other details as noted in HPI Constitutional: no symptoms reported Eyes: denies: eye pain ENT: denies: throat pain Respiratory: no symptoms reported Cardiovascular: palpitations. denies: chest pain Endocrine: no symptoms reported Gastrointestinal: denies: abdominal pain Genitourinary: denies: dysuria Musculoskeletal: denies: back pain Neurological: other (Dizziness) Physical Exam - Physical Exam Vital Signs: Vital Signs 09/29/19 09/29/19 09/29/19 05:18 05:31 05:45 Pulse Rate 162 H 119 H 105 H Respiratory 18 14 14 Rate Blood Pressure 127/84 127/82 O2 Sat by Pulse 97 97 Oximetry Physical Exam: GENERAL: The patient is well-developed well-nourished male lying on stretcher not appearing to be in acute distress. [] HEENT: Normocephalic. Atraumatic. Extraocular motions are intact. Patient has moist mucous membranes. NECK: Supple. Trachea midline CHEST/LUNGS: Clear to auscultation. There is no respiratory distress noted. HEART/CARDIOVASCULAR: Regular. There is tachycardia. There is no gallop rub or murmur. ABDOMEN: Abdomen is soft, nontender. Patient has normal bowel sounds. There is no abdominal distention. SKIN: There is no rash. There is no edema. There is no diaphoresis. NEURO: The patient is awake, alert, and oriented. The patient is cooperative. The patient has normal speech MUSCULOSKELETAL: There is no evidence of acute injury. ED Course Vital Signs 09/29/19 09/29/19 09/29/19 05:18 05:31 05:45 Pulse Rate 162 H 119 H 105 H Respiratory 18 14 14 Rate Blood Pressure 127/84 127/82 O2 Sat by Pulse 97 97 Oximetry - Reevaluation(s) Reevaluation #1: 09/29/19 06:56 Heart rate 97. Patient asymptomatic ED Medical Decision Making - Lab Data Result diagrams: 09/29/19 05:30 09/29/19 05:30 Laboratory Tests 09/29/19 09/29/19 09/29/19 05:30 05:30 05:30 WBC 10.1 RBC 4.63 Hgb 14.6 Hct 42.1 MCV 91 MCH 32 MCHC 35 H RDW 13.0 L Plt Count 202 Sodium 143 Potassium 3.2 L Chloride 102.9 Carbon Dioxide 24 Anion Gap 19 BUN 9 Creatinine 1.0 Estimated GFR > 60 BUN/Creatinine Ratio 9 Glucose 156 H Calcium 9.3 Total Bilirubin 0.20 AST 18 ALT 12 Alkaline Phosphatase 47 Total Creatine Kinase 142 Troponin T < 0.010 Total Protein 6.9 Albumin 4.6 Albumin/Globulin Ratio 2.0 TSH Thyroxine (T4) 4.7 Urine Opiates Screen Urine Methadone Screen Ur Barbiturates Screen Ur Phencyclidine Scrn Ur Amphetamines Screen U Benzodiazepines Scrn Urine Cocaine Screen U Marijuana (THC) Screen Plasma/Serum Alcohol 09/29/19 09/29/19 09/29/19 05:30 05:55 05:55 WBC RBC Hgb Hct MCV MCH MCHC RDW Plt Count Sodium Potassium Chloride Carbon Dioxide Anion Gap BUN Creatinine Estimated GFR BUN/Creatinine Ratio Glucose Calcium Total Bilirubin AST ALT Alkaline Phosphatase Total Creatine Kinase Troponin T Total Protein Albumin Albumin/Globulin Ratio TSH 5.670 H Thyroxine (T4) Urine Opiates Screen Presumptive negative Urine Methadone Screen Presumptive negative Ur Barbiturates Screen Presumptive negative Ur Phencyclidine Scrn Presumptive negative Ur Amphetamines Screen Presumptive negative U Benzodiazepines Scrn Presumptive negative Urine Cocaine Screen Presumptive negative U Marijuana (THC) Screen Presumptive positive Plasma/Serum Alcohol < 0.01 - EKG Data -: EKG Interpreted by Me EKG shows normal: sinus rhythm Rate: tachycardia (132 bpm) - EKG Data When compared to previous EKG there are: previous EKG unavailable Interpretation: other (No ischemic changes seen) - Radiology Data Radiology results: report reviewed (Chest x-ray), image reviewed (Chest x-ray) interpreted by me: Chest x-ray-no focal infiltrates, no pneumothorax Findings [facility] [address] [place] [address] XRay Report Signed Patient: INO BULLARD MR#: [id number] : 1985 Acct:[id number] Age/Sex: 34 / M ADM Date: 09/29/19 Loc: ED Attending Dr: Ordering Physician: PRASANNA JOSEPH MD Date of Service: 09/29/19 Procedure(s): XR chest 1V ap Accession Number(s): [id number] cc: PRASANNA JOSEPH MD Fluoro Time In Minutes: CHEST 1 VIEW INDICATION: chest pain. COMPARISON: 09/25/2019 FINDINGS: Support devices: None. Heart: Normal. Lungs/Pleura: No acute pulmonary or pleural findings. IMPRESSION: 1. No acute findings. Signer Name: Jesus Alberto Pineda MD Signed: 09/29/2019 5:55 AM Workstation Name: [id number] Transcribed By: CYNDEE Dictated By: Jesus Alberto Pineda MD Electronically Authenticated By: Jesus Alberto Pineda MD Signed Date/Time: 09/29/19554 DD/ 4 TD/TT: - Differential Diagnosis SVT, dysrhythmia, anxiety, hyperthyroidism, cocaine abuse Critical care attestation.: If time is entered above; I have spent that time in minutes in the direct care of this critically ill patient, excluding procedure time. ED Disposition Clinical Impression: Palpitations, Hypokalemia Disposition: DC-01 TO HOME OR SELFCARE Is pt being admited?: No Does the pt Need Aspirin: No Condition: Stable Instructions: Palpitations (ED), Supraventricular Tachycardia (ED) Additional Instructions: Return to the emergency department should you develop worsening symptoms, marguerite bility to tolerate food or liquids, high fever or any other concerns Referrals: MILAGRO JOSEPH MD [Staff Physician] - 3-5 Days (Dr. Joseph is a freezer operator. Please follow-up with him for further evaluation) Time of Disposition: 06:56
[2019-09-29 06:33] LABS: Cannabinoid Screen,Urine PRESUMPTIVE POSITIVE
[2019-09-29] MEDS ORDERED: POTASSIUM CHLORIDE ER 20 MEQ TAB PO ONE (06:35)
[2019-09-29 06:44] VITALS: BP 124/77
== END 2019-09-29 07:30 | disposition home or self-care (01) ==
LOC: ED 05:11
DX: R00.2 Palpitations (principal); E87.6 Hypokalemia; R42 Dizziness and giddiness; F31.9 Bipolar disorder, unspecified; F17.200 Nicotine dependence, unspecified, uncomplicated; Z90.49 Acquired absence of other specified parts of digestive tract; Z98.890 Other specified postprocedural states; Z79.899 Other long term (current) drug therapy
CPT/HCPCS: 36415; 71045; 80053; 80307; 82550; 84436; 84443; 84484; 85027; 93005; 93010; 96360; 96361; 99284; J7030; 80320; G0480

== ENCOUNTER 2019-09-30 03:43 | Emergency (ER) | payer SELFPAY ==
[2019-09-30] MEDS ORDERED: SODIUM CHLORIDE 0.9% 1000 ML 1,000 ML ONE (04:15)
[2019-09-30] MEDS ORDERED: SODIUM CHLORIDE 0.9% 1000 ML 1,000 ML IV ONE (04:16)
--- NOTE | 2019-09-30 04:16 | Emergency Department Report ---
ED Palpitations HPI - General Chief Complaint: Arrhythmia/Palpitations Stated Complaint: PANIC ATTACK Time Seen by Provider: 09/30/19 04:06 Source: patient Mode of arrival: Ambulatory Limitations: No Limitations - History of Present Illness Initial Comments: 34-year-old male with history of bipolar disorder presents to ED with palpitations. Patient states he awoke from sleep feeling like he is having an anxiety attack and his heart was racing. I saw the patient for similar symptoms 10 days ago, however at that time patient reported cocaine use that night. Patient denies cocaine use tonight. Patient seen last night and 5 days ago as well for same symptoms. Patient reports he takes Seroquel. States he has an upcoming appointment with his psychiatrist next month. MD Complaint: "heart racing" -: This morning Context: occured during rest Associated Symptoms: denies other symptoms - Related Data Previous Rx's Medication Instructions Recorded Last Taken Type Ondansetron [Zofran Odt] 4 mg PO Q8HR PRN #20 tab.rapdis 01/02/19 Unknown Rx Allergies Allergy/AdvReac Type Severity Reaction Status Date / Time No Known Allergies Allergy Verified 01/02/19 10:27 ED Review of Systems ROS: Stated complaint: PANIC ATTACK Other details as noted in HPI Comment: All other systems reviewed and negative Constitutional: denies: fever Respiratory: denies: shortness of breath Cardiovascular: palpitations. denies: chest pain Gastrointestinal: denies: nausea, vomiting Psychiatric: anxiety ED Past Medical Hx - Past Medical History Previous Medical History?: Yes Hx Psychiatric Treatment: Yes (Bipolar disorder) Additional medical history: "Drug induced schizophrenia" - Surgical History Past Surgical History?: Yes Hx Appendectomy: Yes Additional Surgical History: Plate to right ankle, tonsillectomy - Social History Smoking Status: Current Every Day Smoker Substance Use Type: Cocaine - Medications Home Medications: Home Medications Medication Instructions Recorded Confirmed Last Taken Type Ondansetron [Zofran Odt] 4 mg PO Q8HR PRN #20 tab.rapdis 01/02/19 Unknown Rx ED Physical Exam - General Limitations: No Limitations General appearance: alert, in no apparent distress - Head Head exam: Present: atraumatic, normocephalic - Eye Eye exam: Present: normal appearance, PERRL, EOMI - ENT ENT exam: Present: mucous membranes moist - Neck Neck exam: Present: normal inspection - Respiratory Respiratory exam: Present: normal lung sounds bilaterally. Absent: respiratory distress - Cardiovascular Cardiovascular Exam: Present: normal rhythm, tachycardia - GI/Abdominal GI/Abdominal exam: Present: soft. Absent: distended, tenderness - Extremities Exam Extremities exam: Present: normal inspection - Neurological Exam Neurological exam: Present: alert, oriented X3, CN II-XII intact. Absent: motor sensory deficit - Psychiatric Psychiatric exam: Present: normal affect, normal mood - Skin Skin exam: Present: warm, dry, intact, normal color. Absent: rash ED Course Vital Signs 09/30/19 09/30/19 03:49 03:55 Temperature 98.1 F Pulse Rate 170 H 112 H Respiratory 18 14 Rate Blood Pressure 143/88 Blood Pressure 130/94 [Right] O2 Sat by Pulse 98 98 Oximetry - Reevaluation(s) Reevaluation #1: 09/30/19 04:43 HR currently 88. Pt comfortable, asleep on stretcher. No distress. Will d/c home. Advised to f/u on outpt basis. ED Medical Decision Making - EKG Data -: EKG Interpreted by Me EKG shows normal: sinus rhythm, axis, intervals, QRS complexes, ST-T waves Rate: tachycardia (rate 113) - EKG Data When compared to previous EKG there are: no significant change Critical care attestation.: If time is entered above; I have spent that time in minutes in the direct care of this critically ill patient, excluding procedure time. ED Disposition Clinical Impression: Palpitations, Anxiety Disposition: DC-01 TO HOME OR SELFCARE Is pt being admited?: No Condition: Stable Instructions: Anxiety (ED) Referrals: [facility] [Outside] - 3-5 Days [facility] [Outside] - 3-[address] [facility] [Provider Group] - 3-5 Days ULICES DE MD [Staff Physician] - 3-5 Days MILAGRO NAIK MD [Staff Physician] - 3-5 Days Time of Disposition: 04:44
[2019-09-30 05:01] VITALS: BP 114/69
[2019-09-30 05:06] LABS: Amphetamine Screen,Urine PRESUMPTIVE NEGATIVE; Benzodiazepines Screen,Urine PRESUMPTIVE NEGATIVE; Cocaine Screen,Urine PRESUMPTIVE NEGATIVE; Methadone Screen,Urine PRESUMPTIVE NEGATIVE; Opiate Screen,Urine PRESUMPTIVE NEGATIVE
[2019-09-30 05:25] LABS: Cannabinoid Screen,Urine PRESUMPTIVE POSITIVE
== END 2019-09-30 05:21 | disposition home or self-care (01) ==
LOC: ED 03:43
DX: R00.2 Palpitations (principal); F41.9 Anxiety disorder, unspecified; F31.9 Bipolar disorder, unspecified; F17.200 Nicotine dependence, unspecified, uncomplicated; Z90.49 Acquired absence of other specified parts of digestive tract; Z98.890 Other specified postprocedural states; Z79.899 Other long term (current) drug therapy
CPT/HCPCS: 80307; 93005; 93010; 99283; J7030

== ENCOUNTER 2019-10-04 05:04 | Emergency (ER) | payer SELFPAY ==
--- NOTE | 2019-10-04 05:29 | Event Note ---
Date: 10/04/19 Patient is a 34-year-old gentleman complaining of palpitations which are painless. He denies drug use. He denies recent cocaine use in the past 24 hours. He is clinically sober. He walks with a steady gait. He requests medication for anxiety. He follows at [facility] for underlying psychiatric issues, but has not been able to follow-up secondary to work-related obligations and responsibilities. He is going to see if he can have somebody come by and pick him up, and if so, we will give him Xanax or a benzodiazepine to help out with his symptoms. Alert and oriented x3, clinically sober, not homicidal or suicidal. Recently had extensive laboratory studies done at this hospital. Vital Signs 10/04/19 05:08 Temperature 97.7 F Pulse Rate 135 H Respiratory 18 Rate Blood Pressure 142/93 O2 Sat by Pulse 97 Oximetry
[2019-10-04] MEDS ORDERED: ALPRAZolam 0.5 MG TAB PO ONE ×2 (05:42→07:08)
--- NOTE | 2019-10-04 07:08 | Emergency Department Report ---
ED General Adult HPI - General Chief complaint: Arrhythmia/Palpitations Stated complaint: PANIC ATTACK Time Seen by Provider: 10/04/19 06:55 Source: patient Mode of arrival: Ambulatory Limitations: No Limitations - History of Present Illness Initial comments: The patient presents to the emergency department with a chief complaint of his heart racing. The patient states 30 minutes after taking the Seroquel he felt his heart racing. Patient states that he believes he has anxiety because doing this episodes it is really hard for him to breathe and he becomes real panicky. Patient denies any pain during these events and also denies any pain currently. There is no chest pain. -: Sudden Severity scale (0 -10): 0 Consistency: constant Improves with: none Worsens with: none Associated Symptoms: denies other symptoms Treatments Prior to Arrival: none - Related Data Previous Rx's Medication Instructions Recorded Last Taken Type Ondansetron [Zofran Odt] 4 mg PO Q8HR PRN #20 tab.rapdis 01/02/19 Unknown Rx Allergies Allergy/AdvReac Type Severity Reaction Status Date / Time No Known Allergies Allergy Verified 01/02/19 10:27 ED Review of Systems ROS: Stated complaint: PANIC ATTACK Other details as noted in HPI Constitutional: denies: chills, fever Eyes: denies: eye pain, eye discharge, vision change ENT: denies: ear pain, throat pain Respiratory: denies: cough, shortness of breath, wheezing Cardiovascular: denies: chest pain, palpitations Endocrine: no symptoms reported Gastrointestinal: denies: abdominal pain, nausea, diarrhea Genitourinary: denies: urgency, dysuria Musculoskeletal: denies: back pain, joint swelling, arthralgia Skin: denies: rash, lesions Neurological: denies: headache, weakness, paresthesias Psychiatric: anxiety. denies: depression Hematological/Lymphatic: denies: easy bleeding, easy bruising ED Past Medical Hx - Past Medical History Previous Medical History?: Yes Hx Psychiatric Treatment: Yes (Bipolar disorder) Additional medical history: "Drug induced schizophrenia" - Surgical History Past Surgical History?: Yes Hx Appendectomy: Yes Additional Surgical History: Plate to right ankle, tonsillectomy - Social History Smoking Status: Current Every Day Smoker Substance Use Type: Marijuana - Medications Home Medications: Home Medications Medication Instructions Recorded Confirmed Last Taken Type Ondansetron [Zofran Odt] 4 mg PO Q8HR PRN #20 tab.rapdis 01/02/19 Unknown Rx ED Physical Exam - General Limitations: No Limitations General appearance: alert, in no apparent distress, anxious - Head Head exam: Present: atraumatic, normocephalic - Eye Eye exam: Present: normal appearance - ENT ENT exam: Present: mucous membranes moist - Neck Neck exam: Present: normal inspection - Respiratory Respiratory exam: Present: normal lung sounds bilaterally. Absent: respiratory distress - Cardiovascular Cardiovascular Exam: Present: normal rhythm, tachycardia. Absent: systolic murmur, diastolic murmur, rubs, gallop - GI/Abdominal GI/Abdominal exam: Present: soft, normal bowel sounds. Absent: distended, tenderness - Rectal Rectal exam: Present: deferred - Extremities Exam Extremities exam: Present: normal inspection - Back Exam Back exam: Present: normal inspection - Neurological Exam Neurological exam: Present: alert, oriented X3, CN II-XII intact. Absent: motor sensory deficit - Psychiatric Psychiatric exam: Present: normal affect, normal mood - Skin Skin exam: Present: warm, dry, intact, normal color. Absent: rash ED Course Vital Signs 10/04/19 10/04/19 10/04/19 05:08 06:23 07:21 Temperature 97.7 F Pulse Rate 135 H 101 H 102 H Respiratory 18 16 15 Rate Blood Pressure 142/93 Blood Pressure 91/62 96/57 [Left] O2 Sat by Pulse 97 97 97 Oximetry ED Medical Decision Making - EKG Data -: EKG Interpreted by Me EKG shows normal: sinus rhythm Rate: tachycardia - Medical Decision Making The patient's heart rate decreased from 135 to 94 after receiving Xanax Patient's previous laboratory values were reviewed and since the patient was not having chest pain during this ED course laboratory values were not obtained Discussed with the patient and need to follow-up with a psychiatric physician or primary care physician for further evaluation and treatment of questionable anxiety Patient stated he understood and agreed with this plan Critical care attestation.: If time is entered above; I have spent that time in minutes in the direct care of this critically ill patient, excluding procedure time. ED Disposition Clinical Impression: Anxiousness Disposition: DC-01 TO HOME OR SELFCARE Is pt being admited?: No Does the pt Need Aspirin: No Condition: Stable Instructions: Anxiety (ED), Generalized Anxiety Disorder (ED) Additional Instructions: You should follow-up with your primary care or his psychiatric physician for further evaluation and treatment of anxiety as we discussed Referrals: PRIMARY CARE,MD [Primary Care Provider] - 3-5 Days [facility] [Provider Group] - 3-5 Days [facility] [Provider Group] - 3-5 Days Time of Disposition: 07:48
[2019-10-04 07:23] VITALS: BP 96/57
== END 2019-10-04 08:14 | disposition home or self-care (01) ==
LOC: ED 05:04
DX: F41.1 Generalized anxiety disorder (principal); F25.0 Schizoaffective disorder, bipolar type; F12.90 Cannabis use, unspecified, uncomplicated; F17.200 Nicotine dependence, unspecified, uncomplicated; Z90.49 Acquired absence of other specified parts of digestive tract; Z98.890 Other specified postprocedural states; Z79.899 Other long term (current) drug therapy
CPT/HCPCS: 93005; 93010; 99283

== ENCOUNTER 2020-02-21 03:53 | Emergency (ER) | payer OTHER ==
[2020-02-21 04:07] VITALS: BP 108/69
--- NOTE | 2020-02-21 04:53 | XRay Report ---
Left foreleg 3 views INDICATION: Left foreleg pain following injury IMPRESSION: Minimally displaced spiral fracture through the distal tibial metaphysis as well as an ob liquely oriented fracture involving the proximal fibular metaphysis. Signer Name: Thuan Lewis MD Signed: 02/21/2020 4:49 AM Workstation Name: [id number]
[2020-02-21] MEDS ORDERED: ONDANSETRON 4 MG ODT TAB PO STA (05:06)
[2020-02-21] MEDS ORDERED: MORPHINE 4 MG/1 ML INJ IM STA (05:06)
--- NOTE | 2020-02-21 05:21 | Emergency Department Report ---
ED Lower Extremity HPI - General Chief Complaint: Extremity Injury, Lower Stated Complaint: LT LEG INJURY Time Seen by Provider: 02/21/20 05:05 Source: patient Mode of arrival: Wheelchair Limitations: Physical Limitation - History of Present Illness Initial Comments: 34-year-old F [place] male states that he was at home and had a unexpected fall at the ground level onto his left side causing pain to his his leg and some swelling and has a strong suspicion for a BM broken. MD Complaint: leg injury -: hour(s) (2) Injury: Leg: Left Place: home Severity: severe Improves With: nothing Worsens With: weight bearing, movement, palpation Context: fall Associated Symptoms: swelling, unable to bear weight - Related Data Previous Rx's Medication Instructions Recorded Last Taken Type Ondansetron [Zofran Odt] 4 mg PO Q8HR PRN #20 tab.rapdis 01/02/19 Unknown Rx oxyCODONE /ACETAMINOPHEN [Percocet 1 tab PO Q6HR PRN #10 tablet 02/21/20 Unknown Rx 5/325] Allergies Allergy/AdvReac Type Severity Reaction Status Date / Time No Known Allergies Allergy Verified 01/02/19 10:27 ED Review of Systems ROS: Stated complaint: LT LEG INJURY Other details as noted in HPI Comment: All other systems reviewed and negative ED Past Medical Hx - Past Medical History Previous Medical History?: No Hx Psychiatric Treatment: Yes (Bipolar disorder) Additional medical history: "Drug induced schizophrenia" - Surgical History Past Surgical History?: Yes Hx Appendectomy: Yes Additional Surgical History: Plate to right ankle, tonsillectomy - Social History Smoking Status: Current Every Day Smoker Substance Use Type: Alcohol - Medications Home Medications: Home Medications Medication Instructions Recorded Confirmed Last Taken Type Ondansetron [Zofran Odt] 4 mg PO Q8HR PRN #20 tab.rapdis 01/02/19 Unknown Rx oxyCODONE /ACETAMINOPHEN [Percocet 1 tab PO Q6HR PRN #10 tablet 02/21/20 Unknown Rx 5/325] ED Physical Exam - General Limitations: Physical Limitation General appearance: alert, in no apparent distress - Head Head exam: Present: atraumatic, normocephalic - Cardiovascular Cardiovascular Exam: Present: regular rate, normal rhythm. Absent: systolic murmur, diastolic murmur, rubs, gallop - Extremities Exam Extremities exam: Present: tenderness, normal capillary refill - Expanded Lower Extremity Exam Left Lower Leg exam: Present: tenderness, swelling. Absent: abrasion, ecchymosis, crepidus, erythema, palpable cord, Diana's sign Neuro vascular tendon exam: Present: no vascular compromise ED Course Vital Signs 02/21/20 03:57 Temperature 97.8 F Pulse Rate 84 Respiratory 16 Rate Blood Pressure 108/69 O2 Sat by Pulse 97 Oximetry - Procedure Description Procedures done: Left lower extremity placed in a Murphy splint no Vac-Pac neurovascularly intact Critical care attestation.: If time is entered above; I have spent that time in minutes in the direct care of this critically ill patient, excluding procedure time. ED Disposition Clinical Impression: Displaced spiral fracture of shaft of left tibia, Fracture, fibula, proximal Disposition: DC- TO HOME OR SELFCARE Is pt being admited?: No Does the pt Need Aspirin: No Condition: Stable Instructions: Leg Fracture (ED), Crutch Instructions (ED) Prescriptions: oxyCODONE /ACETAMINOPHEN [Percocet 5/325] 1 tab PO Q6HR PRN #10 tablet PRN Reason: Pain Referrals: MAGO LOPEZ MD [Staff Physician] - 3-5 Days [facility] [Provider Group] - 3-5 Days
[2020-02-21] MEDS ORDERED: HYDROmorphone 1 MG/1 ML INJ IV ONE (05:55)
[2020-02-21] MEDS ORDERED: LORazepam 2 MG/ML VIAL IV ONE (05:55)
== END 2020-02-21 09:18 | disposition home or self-care (01) ==
LOC: ED 03:53
DX: S82.242A Displaced spiral fracture of shaft of left tibia, initial encounter for closed fracture (principal); S82.832A Other fracture of upper and lower end of left fibula, initial encounter for closed fracture; F17.200 Nicotine dependence, unspecified, uncomplicated; W18.30XA Fall on same level, unspecified, initial encounter; Y93.89 Activity, other specified; Y92.89 Other specified places as the place of occurrence of the external cause; Y99.8 Other external cause status
CPT/HCPCS: 29505; 73590; 96372; 96374; 96375; 99284; J1170; J2060; J2270; Q0162